=== PATIENT | male | born 1980 | race Caucasian/White ===

== ENCOUNTER 2018-05-09 03:39 | Emergency (ER) | payer BC, SELFPAY ==
[2018-05-09 04:14] LABS: #Basophils 0.1 thou/uL (0.0-0.2); #Eosinphils 0.3 thou/uL (0.0-0.7); #Lymphocytes 2.9 thou/uL (1.20-3.40); #Monocytes 0.9 thou/uL (0.11-0.59); #Neutrophils 3.6 thou/uL (1.40-6.50); %Basophils 0.8 % (0.0-1.0); %Eosinophils 3.7 % (0.0-10.0); %Monocytes 11.6 % (0.0-10.0); %Neutrophils 46.9 % (42.0-75.0); Hemoglobin 15.3 g/dL (14.0-18.0); Mean Corpuscular HGB CONC 32.2 g/dL (32.0-36.0); Mean Corpuscular Hemoglobin 27.5 pg (27.0-31.0); Mean Corpuscular Volume 85.4 fL (78.0-98.0); Mean Platelet Volume 7.4 fL (7.4-10.4); Platelet Count 293 thou/uL (130-400); RBC Distribution Width 12.2 % (11.5-14.5); Red Blood Cell (RBC) Count 5.56 mill/uL (4.70-6.10); White Blood Cell (WBC) Count 7.7 thou/uL (4.8-10.8)
[2018-05-09] MEDS ORDERED: Cyclobenzaprine 10 MG TAB ONE (04:15)
[2018-05-09] MEDS ORDERED: Sodium Chloride 0.9% 1,000 ML ONE (04:16)
[2018-05-09] MEDS ORDERED: Ketorolac Tromethamine 30 MG/ML VIAL ONE (04:16)
[2018-05-09 04:18] LABS: Bilirubin Negative (Negative); Blood, Urine Negative (Negative); Clarity Clear (Clear); Glucose, Urine (Dipstick) Negative (Negative); Leukocyte Negative (Negative); Nitrite Negative (Negative); Protein, Urine (Dipstick) Negative (Neg-Trace); Specific Gravity, Urine 1.015 (1.005-1.030); Urobilinogen 0.2 mg/dL (0.2-1.0); pH, Urine 7.5 (5.0-9.0)
[2018-05-09] MEDS ORDERED: Dicyclomine 20 MG TAB ONE (04:18)
[2018-05-09] MEDS ORDERED: Ondansetron PF 4 MG/2 ML Vial ONE (04:18)
[2018-05-09 04:35] LABS: ALT (SGPT) 20 U/L (8-55); AST (SGOT) 22 U/L (5-34); Albumin 4.1 g/dL (3.5-5.0); Alkaline Phosphatase 53 U/L (40-150); Anion Gap 11 mmol/L (10-20); BUN (Urea Nitrogen) 15 mg/dL (8.9-20.6); Bilirubin, Total 0.2 mg/dL (0.2-1.2); Calc. Creatinine Clearance 0 mL/min (70-130); Calcium 9.4 mg/dL (7.8-10.44); Carbon Dioxide 28 mmol/L (22-29); Chloride 104 mmol/L (98-107); Estimated GFR-MDRD 80; Globulin 2.8 g/dL (2.4-3.5); Glucose 99 mg/dL (70-105); Potassium 4.2 mmol/L (3.5-5.1); Protein, Total 6.9 g/dL (6.0-8.3); Sodium 139 mmol/L (136-145)
--- NOTE | 2018-05-09 08:18 | CT ---
PRELIMINARY REPORT/[facility]/EMERGENTY AFTER-HOURS PROCEDURE CT Abdomen and Pelvis Without Contrast EXAM DATE/TIME: 05/09/2018 4:21 AM CLINICAL HISTORY: 37 years old, male; Pain; Other: Suprapubic & flank; Patient HX: C/O suprapubic pain for the past wee k and back pain that started wednesday. Worse on the left TECHNIQUE: Axial computed tomography images of the abdomen and pelvis without contrast. All CT scans at this facility use at least one of these dose optimization techniques: automated expos ure control; mA and/or kV adjustment per patient size (includes targeted exams where dose is matched to clinical indication); or iterative reconstruction. Coronal and sagittal reformatted images were created and reviewed. COMPARISON: No relevant prior studies available. FINDINGS: Lower thorax: The visualized portions of the lung bases are normal. ABDOMEN: Liver: The liver is within normal limits for this noncontrast study. Gallbladder and bile ducts: The gallbladder is normal. There is no evidence of biliary ductal dilatio n. Pancreas: The pancreas appears normal. No ductal dilatation. Spleen: The spleen is normal. Adrenals: The adrenal glands are normal. Kidneys and ureters: The right kidney is normal. There is mild LEFT hydroureteronephrosis. Obstructing ureteral calculus is not clearly demonstrated. A calcification is seen in the vicinity of the LEFT ureter which measures 1 x 2 x 3 mm although this may be external phlebolith. Stomach and bowel: The stomach is normal. The duodenum is unremarkable. Appendix: A normal appendix is identified. PELVIS: Bladder: The bladder is normal. Reproductive: The prostate gland and seminal vesicles are normal. ABDOMEN and PELVIS: Intraperitoneal space: Normal. No free air. No significant fluid collection. Bones/joints: No acute fracture. No dislocation. Soft tissues: Unremarkable. Vasculature: Normal. No abdominal aortic aneurysm. Lymph nodes: Normal. No enlarged lymph nodes. IMPRESSION: Mild LEFT hydroureteronephrosis. Small mid LEFT ureteral calculus versus external phlebolith. Thank you for allowing us to participate in the care of your patient. Dictated and Authenticated by: Frankie Warren MD 05/09/2018 5:02 AM Central Time ([place] & [place]) FINAL REPORT CT ABDOMEN AND PELVIS WITHOUT CONTRAST STONE PROTOCOL: Date: 05/09/18 HISTORY: Bilateral flank pain. COMPARISON: CT abdomen and pelvis dated 09/06/14. FINDINGS/IMPRESSION: Findings and impression are concordant with the preliminary report by [facility]. The left ureteral calculu s versus phlebolith in question on the preliminary report is felt to represent a phlebolith not a vilma culus. POS: BE
== END 2018-05-09 05:35 | disposition home or self-care (01) ==
LOC: NAV ERS 03:39
DX: N13.2 Hydronephrosis with renal and ureteral calculous obstruction (principal); F17.210 Nicotine dependence, cigarettes, uncomplicated; Z87.442 Personal history of urinary calculi
CPT/HCPCS: 36415; 74176; 80053; 81003; 85025; 87086; 96361; 96374; 96375; J1885; J2405; J7050

== ENCOUNTER 2019-04-24 14:31 | Emergency (ER) | payer BC ==
[2019-04-24] MEDS ORDERED: Fluorescein Opthalmic Strip ONE (14:43)
[2019-04-24] MEDS ORDERED: Sodium Chloride 0.9% 1,000 ML ONE (14:46)
[2019-04-24] MEDS ORDERED: Adacel (T-DAP) 0.5 ML SYRINGE ONE (15:08)
[2019-04-24] MEDS ORDERED: Erythromycin Base 0.5% Oint 1 GM TUBE ONE (15:08)
[2019-04-24] MEDS ORDERED: Ketorolac Tromethamine 60 MG/2 ML VIAL ONE (15:08)
== END 2019-04-24 15:33 | disposition home or self-care (01) ==
LOC: NAV ERS 14:31
DX: S05.01XA Injury of conjunctiva and corneal abrasion without foreign body, right eye, initial encounter (principal); I10 Essential (primary) hypertension; F17.210 Nicotine dependence, cigarettes, uncomplicated; Z87.442 Personal history of urinary calculi; W22.8XXA Striking against or struck by other objects, initial encounter
CPT/HCPCS: 90471; 90715; 96372; J1885; J7050

== ENCOUNTER 2019-11-18 08:54 | Emergency (ER) | payer BC ==
[2019-11-18] MEDS ORDERED: Fluorescein Opthalmic Strip ONE (09:11)
[2019-11-18] MEDS ORDERED: Tetracaine HCl 0.5% Ophth Soln 2 ML Bottle ONE (09:11)
== END 2019-11-18 09:31 | disposition home or self-care (01) ==
LOC: NAV ERS 08:54
DX: H16.133 Photokeratitis, bilateral (principal); F17.210 Nicotine dependence, cigarettes, uncomplicated
CPT/HCPCS: 99283

== ENCOUNTER 2021-04-01 17:39 | Emergency (ER) | payer OTHER, BC ==
[2021-04-01] MEDS ORDERED: Fluorescein Opthalmic Strip ONE (18:25)
[2021-04-01] MEDS ORDERED: Tetracaine 0.5% PF 4 ML BOT ONE (18:25)
[2021-04-01] MEDS ORDERED: Gentamicin Ophth Soln 0.3% 5 ml Bottle ONE (19:01)
== END 2021-04-01 19:13 | disposition home or self-care (01) ==
LOC: NAV ERS 17:39
DX: T15.01XA Foreign body in cornea, right eye, initial encounter (principal); F17.210 Nicotine dependence, cigarettes, uncomplicated
CPT/HCPCS: 65220

== ENCOUNTER 2021-11-07 14:32 | Emergency (ER) | payer BC, OTHER ==
[~2021-11-07 14:32] MED LIST: Iopamidol 370 76% 100 ML VIAL ONE
[2021-11-07 15:11] LABS: #Basophils 0.1 thou/uL (0.0-0.2); #Eosinphils 0.2 thou/uL (0.0-0.7); #Monocytes 0.9 thou/uL (0.11-0.59); #Neutrophils 4.1 thou/uL (1.40-6.50); %Basophils 0.8 % (0.0-1.0); %Eosinophils 2.3 % (0.0-10.0); %Monocytes 11.5 % (0.0-10.0); %Neutrophils 49.5 % (42.0-75.0); Hemoglobin 14.4 g/dL (14.0-18.0); Mean Corpuscular HGB CONC 31.2 g/dL (32.0-36.0); Mean Corpuscular Hemoglobin 28.3 pg (27.0-31.0); Mean Corpuscular Volume 90.8 fL (78.0-98.0); Mean Platelet Volume 8.3 fL (7.4-10.4); Platelet Count 273 thou/uL (130-400); RBC Distribution Width 12.3 % (11.5-14.5); White Blood Cell (WBC) Count 8.2 thou/uL (4.8-10.8)
[2021-11-07] MEDS ORDERED: Morphine 4 MG/ML VIAL ONE ×2 (15:12→15:58)
[2021-11-07] MEDS ORDERED: Ondansetron PF 4 MG/2 ML Vial ONE (15:12)
[2021-11-07] MEDS ORDERED: Sodium Chloride 0.9% 1,000 ML ONE (15:12)
[2021-11-07 15:30] LABS: ALT (SGPT) 22 U/L (8-55); AST (SGOT) 31 U/L (5-34); Albumin 4.3 g/dL (3.5-5.0); Alkaline Phosphatase 44 U/L (40-110); Anion Gap 16 mmol/L (10-20); BUN (Urea Nitrogen) 22 mg/dL (8.9-20.6); Bilirubin, Total 0.5 mg/dL (0.2-1.2); Calc. Creatinine Clearance 0 mL/min (70-130); Calcium 9.1 mg/dL (7.8-10.44); Carbon Dioxide 25 mmol/L (22-29); Chloride 104 mmol/L (98-107); Estimated GFR 93; Globulin 2.8 g/dL (2.4-3.5); Glucose 93 mg/dL (70-105); Lipase 270 U/L (8-78); Potassium 3.8 mmol/L (3.5-5.1); Protein, Total 7.1 g/dL (6.0-8.3); Sodium 141 mmol/L (136-145)
[2021-11-07] MEDS ORDERED: Ketorolac Tromethamine 30 MG/ML VIAL ONE (16:31)
== END 2021-11-07 16:49 | disposition short-term general hospital (02) ==
LOC: NAV ERS 14:32
DX: N50.811 Right testicular pain (principal); M54.50 Low back pain, unspecified; R10.31 Right lower quadrant pain; F17.210 Nicotine dependence, cigarettes, uncomplicated
CPT/HCPCS: 74177; 80053; 83690; 85025; 96361; 96374; 96375; J1885; J2270; J2405; J7050; Q9967

== ENCOUNTER 2024-11-03 13:33 | Emergency (ER) | payer BC, OTHER ==
[2024-11-03] MEDS ORDERED: Lidocaine 1% (PF) 30 ML VIAL ONE (14:05)
[2024-11-03] MEDS ORDERED: Boostrix 0.5 ML (Tdap) VIAL (>/=7 yrs of age) ONE (14:06)
[2024-11-03] MEDS ORDERED: Cephalexin 250 MG CAP ONE (15:04)
[2024-11-03] MEDS ORDERED: Bacitracin 1 PK ONE (15:04)
== END 2024-11-03 15:55 | disposition home or self-care (01) ==
LOC: NAV ERS 13:33
DX: S61.012A Laceration without foreign body of left thumb without damage to nail, initial encounter (principal); F17.210 Nicotine dependence, cigarettes, uncomplicated; Z23 Encounter for immunization; W26.0XXA Contact with knife, initial encounter; Y93.89 Activity, other specified
CPT/HCPCS: 12002; 90471; 90715